=== PATIENT | male | born 1995 | race Caucasian/White ===

== ENCOUNTER 2018-03-21 19:41 | Inpatient (IN) | payer SELFPAY ==
[2018-03-21 20:30] LABS: #Basophils 0.1 thou/uL (0.0-0.2); #Lymphocytes 2.5 thou/uL (1.20-3.40); #Neutrophils 7.7 thou/uL (1.40-6.50); %Eosinophils 0.2 % (0.0-10.0); %Lymphocytes 22.1 % (21.0-51.0); %Monocytes 8.8 % (0.0-10.0); %Neutrophils 67.8 % (42.0-75.0); Hemoglobin 17.7 g/dL (14.0-18.0); Mean Corpuscular HGB CONC 36.2 g/dL (32.0-36.0); Mean Corpuscular Hemoglobin 35.6 pg (27.0-31.0); Mean Corpuscular Volume 98.4 fL (78.0-98.0); Mean Platelet Volume 6.9 fL (7.4-10.4); Platelet Count 322 thou/uL (130-400); Red Blood Cell (RBC) Count 4.98 mill/uL (4.70-6.10); White Blood Cell (WBC) Count 11.4 thou/uL (4.8-10.8)
[2018-03-21 20:52] LABS: Bilirubin Negative (Negative); Blood, Urine Negative (Negative); Clarity CLEAR (Clear); Glucose, Urine (Dipstick) Negative (Negative); Leukocyte Negative (Negative); Nitrite Negative (Negative); Protein, Urine (Dipstick) 100 mg/dL (Neg-Trace); Specific Gravity, Urine 1.031 (1.002-1.036); Urobilinogen 0.2 mg/dL (0.2-1.0); pH, Urine 5.5 (5.0-9.0)
[2018-03-21 20:54] LABS: ALT (SGPT) 43 U/L (8-55); AST (SGOT) 74 U/L (5-34); Albumin 5.3 g/dL (3.5-5.0); Alkaline Phosphatase 140 U/L (40-150); Anion Gap 20 mmol/L (10-20); BUN (Urea Nitrogen) 25 mg/dL (8.9-20.6); CK (CPK) 2695 U/L (30-200); Calc. Creatinine Clearance 0 mL/min (70-130); Calcium 10.5 mg/dL (7.8-10.44); Carbon Dioxide 25 mmol/L (22-29); Chloride 95 mmol/L (98-107); Estimated GFR-MDRD 63; Globulin 4.1 g/dL (2.4-3.5); Glucose 106 mg/dL (70-105); Potassium 3.7 mmol/L (3.5-5.1); Protein, Total 9.4 g/dL (6.0-8.3); Sodium 136 mmol/L (136-145)
[2018-03-21 20:57] LABS: Bacteria/HPF None Seen HPF (None Seen); Pathc Cast-AUWi Flag 2.32 (0-2.49); RBC/HPF None Seen HPF (0-3); Squamous Epithelial 0-3 HPF (0-3); WBC/HPF 0-3 HPF (0-3)
[2018-03-21] MEDS ORDERED: Ketorolac Tromethamine 30 MG/ML VIAL ONE (22:07)
[2018-03-21] MEDS ORDERED: Ondansetron HCl/PF 4 MG/2 ML Vial IVP PRN (23:53)
[2018-03-21] MEDS ORDERED: Ondansetron ODT 4 MG TAB SL PRN (23:53)
[2018-03-21] MEDS ORDERED: Acetaminophen 325 MG TAB PO PRN (23:53)
[2018-03-22] MEDS: Sodium Chloride 0.9% 1,000 ML IV SCH ×5 (00:12→20:03)
[2018-03-22 00:26] VITALS: BMI 33.4
[2018-03-22] MEDS ORDERED: Ondansetron HCl/PF 4 MG/2 ML Vial IVP PRN (06:49)
[2018-03-22] MEDS ORDERED: Milk Of Magnesia 30 ML UDCUP PO PRN (06:49)
[2018-03-22] MEDS ORDERED: Acetaminophen 325 MG TAB PO PRN (06:49)
[2018-03-22] MEDS ORDERED: hydrALAZINE 20 MG/ML VIAL SLOW IVP PRN (06:49)
[2018-03-22] MEDS ORDERED: Ondansetron ODT 4 MG TAB PO PRN (06:49)
[2018-03-22] MEDS ORDERED: Loratadine 10 MG TAB PO PRN (06:49)
[2018-03-22] MEDS ORDERED: Sodium Chloride 0.65% Nasal 44 ML BOT EA NARE PRN (06:49)
[2018-03-22] MEDS ORDERED: HYDROcodone/Acetaminophen 5/325 mg Tablet PO PRN (06:49)
[2018-03-22] MEDS ORDERED: Diabetic Tussin 200 MG/10 ML UDCUP PO PRN (06:49)
[2018-03-22] MEDS ORDERED: Mag-Al 1200 mg/1200 mg/30 ML UDCUP PO PRN (06:49)
[2018-03-22] MEDS ORDERED: Zolpidem Tartrate 5 MG TAB PO PRN (06:49)
[2018-03-22] MEDS ORDERED: Eucerin (Mineral Oil/Petrolatum,White) 30 gm Jar TOP PRN (06:49)
[2018-03-22] MEDS ORDERED: Senokot 8.6 MG TAB PO PRN (06:49)
[2018-03-22] MEDS ORDERED: Loperamide HCl 2 MG CAP PO PRN (06:49)
[2018-03-22] MEDS ORDERED: Chloraseptic Spray 180 ml Bottle PO PRN (06:49)
[2018-03-22] MEDS ORDERED: Artificial Tears 18 DROP/0.9 ML EA EYE PRN (06:49)
[2018-03-22] MEDS: Heparin 5,000 UNITS/ML VIAL SC SCH ×2 (08:00→20:03)
--- NOTE | 2018-03-22 11:36 | HP ---
PRIMARY CARE PHYSICIAN: [facility] call admission. REASON FOR ADMISSION: Acute kidney failure, rhabdomyolysis. HISTORY OF PRESENT ILLNESS: A 22-year-old male who is working in [employer] business. He was worki ng heavily yesterday, it was outside very hot and humid. He was drinking by himself water and Gatora de. Later on that day, he fell and subsequently he was having Charley horse type of muscle cramping in his both lower extremities, more on the left side and that muscle cramping progressed to his abdom inal muscles. He was feeling nauseated. He was feeling weak. He went to home and he kept drinking Gatorade and water, but he was not feeling better. He was having generalized body ache and cramps an d that is why he finally decided to come to emergency room. He reports that pain was so intense that he was not able to tolerate his pain and his intensity of pain was about 8/10 with the cramping. He denies any Coca Cola colored urine. He denies any fever or chills. He denies any vomiting. He den ies any diarrhea. He never had this type of problem in past. He denies any chest pain, dizziness, s yncope. He denies any UTI symptoms. He denies any other illicit drug abuse. He denies taking any s tatin therapy. REVIEW OF SYSTEMS: The following complete review of systems was negative, unless otherwise mentioned in the HPI or below: Constitutional: Weight loss or gain, ability to conduct usual activities. Skin: Rash, itching. Eyes: Double vision, pain. ENT/Mouth: Nose bleeding, neck stiffness, pain, tenderness. Cardiovascular: Palpitations, dyspnea on exertion, orthopnea. Respiratory: Shortness of breath, wheezing, cough, hemoptysis, fever or night sweats. Gastrointestinal: Poor appetite, abdominal pain, heartburn, nausea, vomiting, constipation, or diarr hea. Genitourinary: Urgency, frequency, dysuria, nocturia. Musculoskeletal: Pain, swelling. Neurologic/Psychiatric: Anxiety, depression. Allergy/Immunologic: Skin rash, bleeding tendency. Please see my HPI for pertinent positive and negative. All other review of systems reviewed and nega tive except as mentioned in the HPI. PAST MEDICAL HISTORY: Reviewed and negative. PAST SURGICAL HISTORY: Reviewed and negative. PSYCHIATRIC HISTORY: Reviewed and negative. SOCIAL HISTORY: Patient denies any tobacco, alcohol or illicit drug abuse. He is working in [employer]. FAMILY HISTORY: No strong family history of premature coronary artery disease, stroke or cancer. ALLERGIES: No known drug allergy. CURRENT HOME MEDICATIONS: Patient is not taking any prescribed or non-prescribed medication. EMERGENCY ROOM COURSE: The patient was given Toradol 30 mg, IV fluid. PHYSICAL EXAMINATION: VITAL SIGNS: On arrival, blood pressure 133/82, pulse 90, respiratory rate 20, temperature 98.1, sat uration 100% on room air, weight 94.3 kilograms. GENERAL: The patient is currently alert, awake, no obvious acute distress. HEAD: Normocephalic, atraumatic. EYES: Pupils round, reactive to light. Extraocular muscle intact. Somewhat dry appearing mucous me mbrane, no oral lesion, no pharyngeal erythema, no exudate. NECK: Supple, no JVD, no thyromegaly, no carotid bruit. LUNGS: Clear to auscultation without any rhonchi or rales. CARDIAC: S1, S2 regular without any murmur or gallop. No suprapubic tenderness. ABDOMEN: Bowel sounds present, nontender, nondistended. No organomegaly, no mass, no suprapubic ten derness. BACK: Examination unremarkable, no CVA tenderness. EXTREMITIES: Upper extremity passive movements of all joints are normal. Lower extremities: No hazel ma. Good peripheral pulsation. SKIN: No skin rash. HEMATOLOGICAL SYSTEM: No lymphadenopathy. PSYCHIATRIC: Normal affect. NEUROLOGIC: The patient is alert and oriented x3. Cranial nerves II-XII intact. Motor and sensatio n within normal limits. No focal neurological deficit noted. SIGNIFICANT LABORATORY DATA: CBC: WBC 11.4, hemoglobin 17.7, platelet 322, MCV 98.4. BMP: Sodium 136, potassium 3.7, chloride 95, carbon dioxide 25, anion gap 20, BUN 25, creatinine 1.41, glucose 10 6, calcium 10.5. LFT: AST 74, ALT 43, alkaline phosphatase 140, albumin 5.3, CK 2695. Urinalysis u nremarkable. ASSESSMENT AND PLAN/IMPRESSION: 1. Acute rhabdomyolysis, likely due to working strenuously in hot humid weather. 2. Acute kidney failure due to volume depletion associated with rhabdomyolysis. 3. Volume depletion with mild hemoconcentration. 4. Obesity with body mass index of 33. 5. Deep venous thrombosis prophylaxis, heparin 5000 units subcu twice daily. 6. Gastrointestinal prophylaxis, Pepcid 20 mg p.o. daily. PLAN: Full admission to medical floor. Continue IV fluid NS at 125 mL per hour. Monitor renal func tion, avoid nephrotoxin agent. Monitor CK level, phosphorus, magnesium tomorrow. At this point, the patient is not stable for discharge because of elevated CK. He needs to be monitored to prevent thomas al toxicity. CODE STATUS: The patient is FULL CODE. The patient is making his decision by himself. He does not have any surrogate decision maker. Disposition plan based on clinical course. We are expecting patient's stay in hospital more than 2 m idnights. Plan of care discussed with the patient and other family member at bedside.
[2018-03-23 05:21] LABS: #Eosinphils 0.1 thou/uL (0.0-0.7); #Lymphocytes 2.3 thou/uL (1.20-3.40); #Monocytes 0.8 thou/uL (0.11-0.59); #Neutrophils 3.1 thou/uL (1.40-6.50); %Basophils 0.6 % (0.0-1.0); %Lymphocytes 36.4 % (21.0-51.0); %Monocytes 12.3 % (0.0-10.0); %Neutrophils 48.8 % (42.0-75.0); Hemoglobin 14.7 g/dL (14.0-18.0); Mean Corpuscular HGB CONC 34.9 g/dL (32.0-36.0); Mean Corpuscular Hemoglobin 35.5 pg (27.0-31.0); Mean Platelet Volume 7.1 fL (7.4-10.4); Platelet Count 219 thou/uL (130-400); RBC Distribution Width 11.1 % (11.5-14.5); Red Blood Cell (RBC) Count 4.16 mill/uL (4.70-6.10); White Blood Cell (WBC) Count 6.3 thou/uL (4.8-10.8)
[2018-03-23 05:28] LABS: ALT (SGPT) 27 U/L (8-55); AST (SGOT) 44 U/L (5-34); Albumin 3.5 g/dL (3.5-5.0); Alkaline Phosphatase 104 U/L (40-150); Anion Gap 9 mmol/L (10-20); BUN (Urea Nitrogen) 15 mg/dL (8.9-20.6); Bilirubin, Total 0.4 mg/dL (0.2-1.2); CK (CPK) 1042 U/L (30-200); Calc. Creatinine Clearance 214 mL/min (70-130); Carbon Dioxide 25 mmol/L (22-29); Chloride 108 mmol/L (98-107); Estimated GFR-MDRD Greater than 90; Glucose 69 mg/dL (70-105); Magnesium 2.2 mg/dL (1.6-2.6); Phosphorus 2.2 mg/dL (2.3-4.7); Protein, Total 6.5 g/dL (6.0-8.3); Sodium 138 mmol/L (136-145)
[2018-03-23] MEDS ORDERED: Famotidine 20 MG TAB PO SCH (09:00)
[2018-03-23] MEDS: Heparin 5,000 UNITS/ML VIAL SC SCH (09:22)
[2018-03-23] MEDS: Sodium Chloride 0.9% 1,000 ML IV SCH (09:22)
--- NOTE | 2018-03-23 10:50 | PDOC.PN ---
- Subjective Encounter Start Date: 03/23/18 Encounter Start Time: 08:50 -: old records requested/rev Patient seen and examined. No new complaints. No overnight events - Objective Resuscitation Status: Resuscitation Status FULL:Full Resuscitation MAR Reviewed: Yes Vital Signs & Weight: Vital Signs (12 hours) Temp Pulse Resp BP Pulse Ox 03/23/18 08:00 97.8 F 85 16 03/23/18 07:34 97.8 F 85 16 107/65 98 03/23/18 04:00 97.7 F 86 18 123/74 97 03/23/18 03:29 98 Weight Weight 207 lb 3.752 oz I&O: 03/22/18 03/23/18 03/24/18 06:59 06:59 06:59 Intake Total 3335 4680 Balance 3335 4680 Result Diagrams: 03/23/18 04:21 03/23/18 04:21 Phys Exam - Physical Examination Constitutional: NAD HEENT: PERRLA, moist MMs, sclera anicteric Neck: no JVD, supple Respiratory: no wheezing, no rales, no rhonchi Cardiovascular: RRR, no significant murmur, no rub Gastrointestinal: soft, non-tender, no distention, positive bowel sounds Musculoskeletal: no edema, pulses present Neurological: non-focal, normal sensation, moves all 4 limbs Psychiatric: normal affect, A&O x 3 Skin: no rash, normal turgor Dx/Plan (1) Acute kidney failure Status: Acute (2) Dehydration Code(s): E86.0 - DEHYDRATION Status: Acute (3) Rhabdomyolysis Code(s): M62.82 - RHABDOMYOLYSIS Status: Acute (4) Obesity (BMI 30.0-34.9) Code(s): E66.9 - OBESITY, UNSPECIFIED Status: Chronic - Plan cont current plan of care, plan discussed w/ family * pt is improving * wants to go home * medication reviewed as below * symptomatic treatment * see discharge chino. Review of Systems - Review of Systems Eyes: negative: Pain, Vision Change, Conjunctivae Inflammation, Eyelid Inflammation, Redness, Other ENT: negative: Ear Pain, Ear Discharge, Nose Pain, Nose Discharge, Nose Congestion, Mouth Pain, Mouth Swelling, Throat Pain, Throat Swelling, Other Respiratory: negative: Cough, Dry, Shortness of Breath, Hemoptysis, SOB with Excertion, Pleuritic Pain, Sputum, Wheezing Cardiovascular: negative: chest pain, palpitations, orthopnea, paroxysmal nocturnal dyspnea, edema, light headedness, other Gastrointestinal: negative: Nausea, Vomiting, Abdominal Pain, Diarrhea, Constipation, Melena, Hematochezia, Other Genitourinary: negative: Dysuria, Frequency, Incontinence, Hematuria, Retention , Other Musculoskeletal: negative: Neck Pain, Shoulder Pain, Arm Pain, Back Pain, Hand Pain, Leg Pain, Foot Pain, Other Skin: negative: Rash, Lesions, Nguyễn, Bruising, Other - Medications/Allergies Allergies/Adverse Reactions: Allergies Allergy/AdvReac Type Severity Reaction Status Date / Time No Known Allergies Allergy Verified 03/22/18 01:17 Medications: Current Medications Acetaminophen (Tylenol) 650 mg PO Q4H PRN PRN Reason: Headache/Fever or Pain Hydrocodone Bitart/Acetaminophen ([place] 5/325) 1 tab PO Q4H PRN PRN Reason: Moderate Pain (4-6) Al Hydroxide/Mg Hydroxide (Maalox) 30 ml PO Q6H PRN PRN Reason: Heartburn or Indigestion Artificial Tears (Tears Naturale) 0 drop EA EYE PRN PRN PRN Reason: Dry Eyes Famotidine (Pepcid) 20 mg PO DAILY [facility] Last Admin: 03/23/18 09:22 Dose: 20 mg Guaifenesin (Robitussin Sf) 200 mg PO Q4H PRN PRN Reason: Cough Heparin Sodium (Porcine) (Heparin) 5,000 units SC BID [facility] Last Admin: 03/23/18 09:22 Dose: 5,000 units Hydralazine HCl (Apresoline) 10 mg SLOW IVP Q4H PRN PRN Reason: Systolic BP > 180 Sodium Chloride (Normal Saline 0.9%) 1,000 mls @ 125 mls/hr IV .Q8H [facility] Last Admin: 03/23/18 09:22 Dose: 1,000 mls Loperamide HCl (Imodium) 2 mg PO PRN PRN PRN Reason: Diarrhea/Loose Stools Loratadine (Claritin) 10 mg PO DAILYPRN PRN PRN Reason: Sinus Symptoms Magnesium Hydroxide (Milk Of Magnesium) 30 ml PO DAILYPRN PRN PRN Reason: Constipation Mineral Oil/White Petrolatum (Eucerin Cream) 0 gm TOP BIDPRN PRN PRN Reason: Dry Skin Ondansetron HCl (Zofran Odt) 4 mg PO Q6H PRN PRN Reason: Nausea/Vomiting Ondansetron HCl (Zofran) 4 mg IVP Q6H PRN PRN Reason: Nausea/Vomiting Phenol (Chloraseptic [place] 180 Ml Bot) 0 ml PO PRN PRN PRN Reason: Sore Throat Senna (Senokot) 2 tab PO HSPRN PRN PRN Reason: Constipation Sodium Chloride ([place] Nasal [place] 0.65%) 0 ml EA NARE QIDPRN PRN PRN Reason: Nasal Congestion Zolpidem Tartrate (Ambien) 5 mg PO HSPRN PRN PRN Reason: Insomnia
[2018-03-23 10:53] VITALS: BP 142/82; TEMP 97.7
--- NOTE | 2018-03-23 11:34 | DIS ---
DATE OF ADMISSION: 03/21/2018 DATE OF DISCHARGE: 03/23/2018 PRIMARY CARE PHYSICIAN: [facility] call admission. DISCHARGE DISPOSITION: Home. PRIMARY DISCHARGE DIAGNOSES: 1. Acute rhabdomyolysis, improving. 2. Acute kidney failure. 3. Dehydration. SECONDARY DISCHARGE DIAGNOSIS: Obesity with BMI 33. PRIMARY PROCEDURE/OPERATION: None. RADIOLOGICAL INVESTIGATION: None. SIGNIFICANT LABORATORY DATA: WBC 6.3, hemoglobin 14.7, MCV 102, platelets 219. Sodium 138, potassiu m 4.0, BUN 15, creatinine 0.72, phosphorus 2.2, magnesium 2.2, AST 44, ALT 27, alkaline phosphatase 1 04. CK 1042, albumin 3.5. Urinalysis normal. DISCHARGE MEDICATIONS: None. CONTRAINDICATIONS: None. CODE STATUS: FULL CODE. INPATIENT CONSULTANTS: None. ALLERGIES: No known drug allergy. DISCHARGE PLAN: Post hospital, the patient will follow up with primary care physician in 1 week. HOSPITAL COURSE: This is a 22-year-old male, who has no significant medical history, [facility] complaint of muscle cramps in his lower extremity as well as abdominal muscle cramps . He is working in [employer] business and he was working heavily in hot humid weather that precipi tated this episode. He was also feeling nausea, but no vomiting. He did not have any diarrhea. He clinically appeared dehydrated. He was diagnosed with rhabdomyolysis and acute kidney failure. Amrita ent was given IV fluid while in hospital and his condition improved to normal. He is now tolerating p.o. well and he is ambulatory. He has no longer cramps. His CK is still high, but the patient expr essed his wish to go home today and he will keep himself off of work and he will drink plenty of flui ds. At this point, patient is medically stable for discharge. The patient is seen and examined at [facility] today. Please see my progress note from today for further detail.
== END 2018-03-23 10:53 | disposition home or self-care (01) | DRG 683 ==
LOC: ERS 19:41 → OBSVTOIN 23:45 → T4-B 23:45
PROVIDERS: ADMIT Internal Medicine; ATTEND Internal Medicine
DX: N17.9 Acute kidney failure, unspecified (principal); M62.82 Rhabdomyolysis; M79.81 Nontraumatic hematoma of soft tissue; E66.9 Obesity, unspecified; E86.0 Dehydration; Z68.33 Body mass index [BMI] 33.0-33.9, adult
CPT/HCPCS: 36415; 80053; 81003; 81015; 82550; 83735; 84100; 85025; 96361; 96374; J1644; J1885